=== PATIENT | female | born 1960 | race Caucasian/White ===

== ENCOUNTER → 2019-09-15 | Outpatient (CLI) | payer OTHER ==
[2015-02-26 11:09] VITALS: BP 136/100
[~2019-09-15] MED LIST: ASPI-630 PO; HYDR12.58 PO; IOHEXOL 300 MG/ML 100ML VIAL. IV ONE; LEVO150T5 PO; METO-269 PO; METO50TA4 PO; OMEP20CA16 PO
--- NOTE | 2019-09-15 14:47 | KCIC ---
CTA of the abdomen and pelvis with contrast 09/15/2019 CLINICAL HISTORY: History of splenic artery aneurysm. TECHNIQUE: After the intravenous administration of 100 cc of Omnipaque 300, contiguous, 0.625 mm axial sections were obtained through the abdomen and pelvis. Multiplanar 3-D MIP and volume rendered 3-D reconstructions images were obtained. One or more of the following individualized dose reduction techniques were utilized for this study: 1. Automated exposure control. 2. Adjustment of the mA and/or kV according to patient size. 3. Use of iterative reconstruction technique. FINDINGS: No previous imaging studies are available for comparison. Images through the lung bases demonstrate mild cardiomegaly. Minimal dependent subsegmental atelectasis is seen bilaterally. The liver, spleen, pancreas, right adrenal gland and left kidney are within normal limits. A 1 cm low-attenuation nodule seen involving the left adrenal gland consistent with an adrenal adenoma. A 8mm rounded low-attenuation lesion is seen projecting inferiorly from the lower pole of the right kidney. This likely represents a cyst. No further imaging workup is recommended. The gallbladder is well-distended. No free fluid or free air is seen within the abdomen. There is no evidence of bowel obstruction. Images through the pelvis demonstrate the urinary bladder distended with urine. Calcifications are seen within the pelvis consistent with phleboliths. No free fluid is seen. CTA images demonstrate atherosclerotic calcification of the abdominal aorta and its branches. The abdominal aorta tapers normally. Solitary renal arteries are seen bilaterally. There are patent. The origins of the celiac trunk and superior mesenteric arteries are patent. The origin of the superior mesenteric artery is patent. The common iliac arteries and their branches are patent. No area of stenosis or occlusion is seen. The splenic artery is tortuous. A saccular aneurysm is seen involving the mid splenic artery within the left upper quadrant of the abdomen. This measures 1.2 cm in greatest diameter. It has a calcified wall. No additional aneurysm is seen. Very mild S-shaped curvature of the thoracolumbar spine is noted. Degenerative changes are seen involving the lower thoracic and throughout the lumbar spine along with both hips. IMPRESSION: 1.2 cm aneurysm is seen involving the splenic artery. No acute abnormality is seen. Electronically signed by: Jordan Wilhelm MD (09/15/2019 2:44 PM) [id number]
== END | disposition home or self-care (01) ==
LOC: KCIC CT 09:56
PROVIDERS: ATTEND Specialist
DX: I72.8 Aneurysm of other specified arteries (principal); I70.0 Atherosclerosis of aorta; J98.11 Atelectasis; N28.89 Other specified disorders of kidney and ureter; I51.7 Cardiomegaly
CPT/HCPCS: 74174; Q9967

== ENCOUNTER → 2020-09-11 | Outpatient (CLI) | payer OTHER ==
[2015-02-26 11:09] VITALS: BP 136/100
[~2020-09-11] MED LIST changes: -IOHEXOL 300 MG/ML 100ML VIAL. IV ONE; +IOHEXOL 350 MG/ML 100 ML VIAL. IV ONE
--- NOTE | 2020-09-11 15:29 | RAD ---
EXAM: CT Angiography of the Abdomen INDICATION: Reason: splenic artery aneurysm / Spl. Instructions: IV OMNI 350 90 MLS / History: TECHNIQUE: CT angiography of the abdomen was performed with intravenous contrast. Vascular 3D images were generated on a dedicated workstation and reviewed. All CT scans performed at this facility util ize dose optimization techniques as appropriate to the exam, including the following: Automated expos ure control and adjustment of the mA and/or KV according to patient size (this includes techniques or standardized protocols for targeted exams where dose is indication/reason for exam). IV CONTRAST: Administered COMPARISON: CT angiogram abdomen and pelvis of 09/15/2019 FINDINGS: VASCULAR FINDINGS: Abdominal Aorta and Branches: Celiac axis: No significant stenosis. Redemonstrated is a distal rim calcified splenic artery aneurys m measuring 1.2 x 1.0 cm, not significantly changed in the interval. SMA: No significant stenosis. JESS: No significant stenosis. Right renal vessels: No significant stenosis. Single right renal artery. Left renal vessels: No significant stenosis. Both main left renal artery and the accessory left renal artery arising just below the origin of the inferior mesenteric artery are patent. Infrarenal aorta: No significant stenosis or aneurysm. Pelvic Vessels: R. Common iliac artery: No significant stenosis. R. External iliac artery: No significant stenosis. R. Internal iliac artery: No significant stenosis. L. Common iliac artery: No significant stenosis. L. External iliac artery: No significant stenosis. L. Internal iliac artery: No significant stenosis. NON VASCULAR FINDINGS: Fatty liver. Stable 1.4 cm left adrenal adenoma and 0.7 cm right adrenal adenoma. Stable exophytic inferior pole 8mm right renal cyst requiring no additional imaging follow-up. Solid abdominal organs otherwise are unremarkable. Multilevel lumbar spinal degenerative spondylosis with mild S-shaped scoliotic curvature, unchanged i n the interval. IMPRESSION: No significant interval change in the distal splenic artery aneurysm measuring 1.2 x 1.0 cm. No acute superimposed process. Electronically signed by: Lalo Shannon MD (09/11/2020 3:27 PM) [id number]
== END ==
LOC: CT 08:55
PROVIDERS: ATTEND Family Medicine
DX: I72.8 Aneurysm of other specified arteries (principal); K76.0 Fatty (change of) liver, not elsewhere classified; N28.1 Cyst of kidney, acquired; M47.816 Spondylosis without myelopathy or radiculopathy, lumbar region
CPT/HCPCS: 74175; Q9967

== ENCOUNTER → 2021-08-16 | Outpatient (CLI) | payer OTHER ==
[2015-02-26 11:09] VITALS: BP 136/100
[~2021-08-16] MED LIST changes: +CONTRAST GIVEN. MC PRN
--- NOTE | 2021-08-16 09:59 | RAD ---
CT angiography of the abdomen 08/16/2021 INDICATION:[facility] artery aneurysm COMPARISON STUDY: CT angiography of the abdomen September 11, 2020 TECHNIQUE: Multidetector CT imaging of the abdomen was performed following the administration of cont rast. 3-D reconstructions of abdominal pelvic vasculature were created on an independent workstation. FINDINGS: There is a small peripherally calcified splenic artery aneurysm. Aneurysm measures approximately 1.1 cm on today's exam. This is unchanged in the interim since comparison study. The abdominal aorta is otherwise unremarkable without evidence of aneurysm or dissection. Celiac odessa ry, SMA, renal arteries, and JESS are patent. No aortoiliac stenosis is identified. Solid viscera of the abdomen demonstrate no acute abnormality. Stable small left adrenal adenoma. Kymberly er is mildly low in density suggesting hepatic steatosis. No evidence of bowel obstruction is seen. N o free fluid or free air seen in the pelvis. Hysterectomy noted. Impression 1. 1.1 cm prominently calcified, Splenic artery aneurysm, unchanged from comparison study 2. Possible mild hepatic steatosis CT DOSING PQRS STATEMENT: One or more of the following individualized dose reduction techniques were utilized for this examinat ion: 1. Automated exposure control 2. Adjustment of the mA and/or kV according to patient size 3. Use of iterative reconstruction technique Electronically signed by: Miguel Angel Beltran MD (08/16/2021 9:57 AM) [id number]
== END ==
LOC: CT 08:01
PROVIDERS: ATTEND Family Medicine
DX: I72.8 Aneurysm of other specified arteries (principal); D35.02 Benign neoplasm of left adrenal gland
CPT/HCPCS: 74175; Q9967